=== PATIENT | male | born 1985 | race Caucasian/White ===

== ENCOUNTER 2018-01-16 13:42 | Emergency (ER) | END 2018-01-16 15:50 | disposition home or self-care (01) ==

== ENCOUNTER 2019-01-08 13:36 | Emergency (ER) | payer OTHER ==
[~2019-01-08] VITALS: Wt 81.6 kg
[2019-01-08] MEDS ORDERED: SODIUM CHLORIDE 0.9% 1L BAG IV* STA (14:48)
[2019-01-08] MEDS ORDERED: CEFEPIME 2GM/50 ML (PMX) 50 ML IVPB STA (14:48)
[2019-01-08] MEDS ORDERED: VANCOMYCIN 1 GM (PMX) 250 ML IVPB ONE (15:00)
[2019-01-08] MEDS ORDERED: morphine 10 MG INJ IV ONE ×2 (16:00→22:00)
[2019-01-08] MEDS ORDERED: HYDROmorphONE 0.5 MG/0.5 ML SYG IV STA (17:55)
[2019-01-08] MEDS ORDERED: SOD CHLORIDE 0.9% 100 ML ONE (19:08)
[2019-01-08] MEDS ORDERED: IOHEXOL 300MG/ML 150 ML BTL ONE (19:08)
--- NOTE | 2019-01-08 21:35 | ERD ---
ER Documentation Chief Complaint Chief Complaint L hand swelling with pain since wednesday; hit w/ screwdriver 1 wk ago HPI 33-year-old male presenting with left hand infection with associated swelling and severe pain. He states he punctured his hand with a screwdriver 1 week ago. A few days later, he had signs of an infection so he went to the clinic where he received Keflex. He has been taking Keflex for the past 5 days with no alleviation of his symptoms. His symptoms have been worsening. He denies any associated fevers or chills. He has a severe throbbing pain in the center of his hand, worse with touch, with no alleviating factors. The pain is constant. ROS All systems reviewed and are negative except as per history of present illness. Allergies Allergies: Coded Allergies: No Known Allergy (Unverified , 01/08/19) PMhx/Soc Medical and Surgical Hx: pt denies Surgical Hx History of Surgery: No Anesthesia Reaction: No Hx Neurological Disorder: No Hx Respiratory Disorders: No Hx Cardiac Disorders: No Hx Psychiatric Problems: No Hx Miscellaneous Medical Probl: Yes (Diabetes) Hx Alcohol Use: No Hx Substance Use: No Hx Tobacco Use: No Smoking Status: Never smoker FmHx Family History: No coronary disease Physical Exam Vitals Vital Signs Date Temp Pulse Resp B/P (MAP) Pulse Ox O2 O2 Flow FiO2 Time Delivery Rate 01/08/19 98.4 96 16 155/95 98 Room Air 18:44 (115) 01/08/19 98.0 102 20 134/71 100 13:44 (92) Physical Exam Const: No acute distress, nontoxic Head: Atraumatic Eyes: Normal Conjunctiva ENT: Normal External Ears, Nose and Mouth. Neck: Full range of motion. No meningismus. Resp: Clear to auscultation bilaterally Cardio: Tachycardic with regular left upper extremity exam rhythm, no murmurs Abd: Soft, non tender, non distended. Normal bowel sounds Skin: No petechiae or rashes Back: No midline or flank tenderness Ext: No cyanosis Left UPPER EXTREMITY: No obvious deformity. No ecchymosis. No edema. No laceration. 2+ RP. CR < 2 sec. Full AROM in Wrist/Elbow/Shoulder. There is erythema of the entire palm with swelling and tenderness to palpation with no fluctuance. Does not involve digits. It is indurated, mostly in the center of the palm with tenderness to palpation. He is unable to fully extend the middle digit but is able to flex. No necrotic tissue. Neur: Awake and alert Psych: Normal Mood and Affect Result Diagram: 01/08/19 1500 01/08/19 1500 Results 24 hrs Laboratory Tests Test 01/08/19 15:00 01/08/19 15:07 01/08/19 16:01 01/08/19 18:55 White Blood Count 10.0 10^3/ul Red Blood Count 4.91 10^6/ul Hemoglobin 13.7 g/dl Hematocrit 40.5 % Mean Corpuscular 82.5 fl Volume Mean Corpuscular 27.9 pg Hemoglobin Mean Corpuscular 33.8 g/dl Hemoglobin Concent Red Cell Distribution 12.7 % Width Platelet Count 309 10^3/UL Mean Platelet Volume 9.3 fl Immature Granulocytes 0.700 % % Neutrophils % 75.7 % Lymphocytes % 16.0 % Monocytes % 6.4 % Eosinophils % 0.8 % Basophils % 0.4 % Nucleated Red Blood 0.0 /100WBC Cells % Immature Granulocytes 0.070 10^3/ul # Neutrophils # 7.6 10^3/ul Lymphocytes # 1.6 10^3/ul Monocytes # 0.6 10^3/ul Eosinophils # 0.1 10^3/ul Basophils # 0.0 10^3/ul Nucleated Red Blood 0.0 10^3/ul Cells # Sodium Level 138 mmol/L Potassium Level 4.0 mmol/L Chloride Level 101 mmol/L Carbon Dioxide Level 27 mmol/L Anion Gap 10 Blood Urea Nitrogen 14 mg/dl Creatinine 0.47 mg/dl Est Glomerular Filtrat > 60 mL/min Rate mL/min Glucose Level 334 mg/dl Calcium Level 9.5 mg/dl Total Bilirubin 0.4 mg/dl Direct Bilirubin 0.00 mg/dl Indirect Bilirubin 0.4 mg/dl Aspartate Amino 16 IU/L Transf (AST/SGOT) Alanine 25 IU/L Aminotransferase (ALT/ SGPT) Alkaline Phosphatase 98 IU/L Total Protein 7.5 g/dl Albumin 4.0 g/dl Globulin 3.50 g/dl Albumin/Globulin Ratio 1.14 POC Venous Lactate 1.2 mmol/L Bedside Urine pH (LAB) 6.0 Bedside Urine Protein Negative (LAB) Bedside Urine Glucose 0.50% (UA) Bedside Urine Ketones 1+ (LAB) Bedside Urine Blood Negative Bedside Urine Nitrite Negative (LAB) Bedside Urine Negative Leukocyte Esterase (L Lactic Acid Level 1.1 mmol/L Current Medications Medications Dose Sig/Michael Start Time Status Last (Trade) Ordered Route PRN Stop Time Admin Dose Reason Admin Sodium 2,450 ml BOLUS OVER 2 01/08/19 DC 01/08/19 Chloride HOURS STAT 14:48 01/08/19 15:13 (NS) IV* 14:50 Cefepime HCl 50 ml @ ONCE STAT 01/08/19 DC 01/08/19 100 mls/hr IVPB 14:48 01/08/19 15:17 15:17 Vancomycin 250 ml @ ONCE ONCE 01/08/19 DC 01/08/19 HCl 125 mls/hr IVPB 15:00 01/08/19 15:46 16:59 Morphine 6 mg ONCE ONCE 01/08/19 DC 01/08/19 Sulfate IV 16:00 01/08/19 15:53 (morphine) 16:01 0.5 mg ONCE STAT 01/08/19 DC 01/08/19 Hydromorphone IV 17:55 01/08/19 18:09 HCl 17:56 (Dilaudid) IV Flush 10 ml STK-MED 01/08/19 DC (NS 10 ml) ONCE .ROUTE 19:08 01/08/19 19:09 Sodium 100 ml @ ud STK-MED 01/08/19 DC Chloride ONCE .ROUTE 19:08 01/08/19 19:09 Iohexol 150 ml STK-MED 01/08/19 DC (Omnipaque ONCE .ROUTE 19:08 01/08/19 300mg/ ml) 19:09 Procedures/MDM EMERGENT LABS AND DIAGNOSTIC STUDIES: Lab Results above were reviewed and interpreted by me. CBC: no anemia or evidence of infection CMP: Hyperglycemic without evidence of acidosis. No evidence of clinically significant electrolyte abnormality, acidosis, renal failure, hypoglycemia, liver disease, or biliary obstruction Lactate within normal limits without evidence of sepsis or tissue hypoperfusion Radiology Results as interpreted by Radiology below were reviewed by Cesia Darden MD: CT left hand: IMPRESSION: Edema in the subcutaneous fat at the palmar aspect of the hand also extending a round the proximal phalanx of the third finger is in keeping with superficial soft tissue infection without soft tissue gas. Negative for evidence of tenosynovitis and negative for evidence of osteomyelitis. Initial Nursing notes reviewed. Previous Medical Records requested via the Electronic Health Record. EMERGENCY DEPARTMENT COURSE / MEDICAL DECISION MAKING: Patient is presenting with left hand cellulitis that is not improving with outpatient antibiotics. I have a high suspicion for tenosynovitis. He states that his tetanus vaccine was just recently updated. There is no evidence of necrotizing soft tissue infection. Patient was treated with IV vancomycin and cefepime and multiple doses of pain medications. I reached out to one of our hand surgeons, Dr. Person, who was unable to consult on the patient as she is not senior formulation scientist. I then reached out to [facility] to try to transfer the patient. We also reached out to [facility]. I spoke with the ER physician of [facility], Dr. London, who accepted the patient to the ER. I later received a call back from Dr. London saying that Dr. Roca, his plastic surgeon on-call for hand, had declined to accept the patient as he did not feel the patient required transfer and surgical intervention based on my evaluation and assessment of the patient. I then reached out to [facility] to help arrange for transfer for this patient for higher level of care to see a hand surgeon. I spoke with Dr. Carter who is going to try to arrange transfer to [facility]. After this, I received a call back from [facility], stating that They were going to accept the patient after speaking to their administration. I spoke with Dr. Roca and he accepted the patient for transfer. Critical Care Time: 45 minutes Treatments/Evaluations: Close monitoring and treatment of unstable vital signs, cardiorespiratory, and neurologic status, while maintaining tight balance of fluid, respiratory, and cardiac interventions. This time includes discussing the case with the patient and the patients family. This time does not include all procedures stated elsewhere in this record. This time also includes reviewing old records, labs and radiological studies. This time includes examining and re- examining the patient. Additionally, this time also includes arranging care with admitting and consulting physicians. Departure Diagnosis: Primary Impression: Cellulitis of left hand Condition: HAWA Carpio MD Jan 08, 2019 21:35
[2019-01-08 21:55] VITALS: BP 162/95; PULSE 87; RESP 16
== END 2019-01-08 22:22 | disposition short-term general hospital (02) ==
LOC: FTE 13:36 → E/R 22:22
DX: L03.114 Cellulitis of left upper limb (principal); E11.9 Type 2 diabetes mellitus without complications
CPT/HCPCS: 36415; 73200; 80053; 81003; 83605; 85025; 87040; 96374; 96375; 99285; J1170; J2270; J3370; J7030; Q9967